=== PATIENT | female | born 1975 ===

== ENCOUNTER 2021-09-08 05:50 | Day surgery (SDC) | payer OTHER ==
[~2021-09-08 05:50] MED LIST: SYNTHROID50 MCG PO
== END 2021-09-08 16:10 | disposition home or self-care (01) ==
LOC: CIR.AMB 05:50
PROVIDERS: ATTEND Obstetrics & Gynecology
DX: N72 Inflammatory disease of cervix uteri (principal); Z86.16 Personal history of COVID-19; E03.9 Hypothyroidism, unspecified; R73.03 Prediabetes; E66.9 Obesity, unspecified